=== PATIENT | male | born 1995 | race Caucasian/White ===

== ENCOUNTER → 2017-11-12 | Outpatient (CLI) | payer OTHER ==
--- NOTE | 2017-11-12 14:38 | RADIOLOGY REPORT (SQ) ---
EXAM DESCRIPTION: MRI LUMBAR SPINE WITHOUT COMPLETED DATE/TIME: 11/12/2017 10:39 am REASON FOR STUDY: WEDGE COMPRESSION FRACTURE OF FIRST LUMBAR VERTEBRA S32.010S WEDGE COMPRESSION FR ACTURE OF FIRST LUMBAR VERTEBRA COMPARISON: None. TECHNIQUE: Sagittal and Axial imaging includes T1, T2, STIR and gradient echo sequences. Coronal T2/ HASTE imaging. LIMITATIONS: None. FINDINGS: VISUALIZED UPPER ABDOMEN: Limited evaluation. No acute or suspicious findings suggested. SEGMENTATION: No transitional anatomy. The lowest well-developed disc space is labeled L5-S1. ALIGNMENT: Anatomic. 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 Th is is likely due to remote prior apophyseal injury. There is vertebral body and endplate irregularit y anteriorly along the upper and lower endplate of L1. BONE MARROW: Normal. No marrow replacement or reactive changes. DISC SIGNAL: Normal. No significant abnormal signal or loss of height. POSTERIOR ELEMENTS: Generally intact. No pars defect evident. HARDWARE: None in the spine. CORD AND CONUS: Normal in size and signal intensity. Conus at the T12-L1 level. SOFT TISSUES: No aortic aneurysm seen. No bulky retroperitoneal adenopathy or mass. No paraspinal mas s or fluid. T11-12: Unremarkable. T12-L1: Unremarkable. L1-L2: Unremarkable. L2-L3: Mild bilateral facet hypertrophy. No central or foraminal encroachment. L3-L4: Mild bilateral facet hypertrophy. No central or foraminal encroachment. L4-L5: Mild bilateral facet hypertrophy. No central or foraminal encroachment. L5-S1: Mild bilateral facet hypertrophy. No central or foraminal encroachment. SACRUM: Visualized upper sacrum intact. OTHER: No other significant findings. IMPRESSION: No acute or significant findings. 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 TECHNICAL DOCUMENTATION: JOB ID: [id number] [employer]- All Rights Reserved Reading location - IP/workstation name: [email or web address]
== END ==
LOC: RAD 09:01
PROVIDERS: ATTEND Physician Assistant
DX: S32.010S Wedge compression fracture of first lumbar vertebra, sequela (principal); X58.XXXS Exposure to other specified factors, sequela
CPT/HCPCS: 72148